=== PATIENT | male | born 1970 | race Caucasian/White ===

== ENCOUNTER → 2020-03-20 08:43 | Outpatient (BNVA) | payer OTHER, SELFPAY | PROVIDERS: PCP Internal Medicine; Referring Provider Internal Medicine; Visit Provider Urology | DX: N41.1 Chronic prostatitis (principal); B96.89 Other specified bacterial agents as the cause of diseases classified elsewhere | CPT/HCPCS: 99212 ==

== ENCOUNTER → 2022-06-04 10:54 | Outpatient (BNVA) | payer OTHER, SELFPAY | PROVIDERS: PCP Internal Medicine; Visit Provider Urology | DX: N50.819 Testicular pain, unspecified (principal) | CPT/HCPCS: 51798 ==